=== PATIENT | male | born 1985 | race Caucasian/White ===

== ENCOUNTER 2024-04-24 16:33 | Inpatient (IN) | payer BC ==
[~2024-04-24] VITALS: Ht 180.3 cm; Wt 92.6 kg
[2024-04-24 16:51] VITALS: BP_SYST 118; PULSE 71; RESP 16; TEMP 96.6; O2SAT 97
[2024-04-24 19:28] LABS: BASOPHILS # (AUTO) 0.1 K/uL (0.0-0.2); BASOPHILS % (AUTO) 0.7 % (0.0-2.0); EOSINOPHILS # (AUTO) 0.4 K/uL (0.0-0.4); EOSINOPHILS % (AUTO) 4.4 % (0.0-4.0); HEMATOCRIT 43.1 % (36-54); HEMOGLOBIN 14.7 g/dL (14.0-18.0); LYMPHOCYTES # (AUTO) 2.6 K/uL (1.0-5.5); LYMPHOCYTES % (AUTO) 27.5 % (20.5-51.5); MEAN CORPUSCULAR HEMOGLOBIN 31 pg (27-31); MEAN CORPUSCULAR HGB CONC 34 % (32-36); MEAN CORPUSCULAR VOLUME 90 fL (79.0-98.0); MONOCYTES # (AUTO) 0.6 K/uL (0.0-1.0); MONOCYTES % (AUTO) 6.5 % (1.7-9.3); NEUTROPHILS # (AUTO) 5.7 K/uL (1.8-7.7); NEUTROPHILS % (AUTO) 60.9 % (40.0-70.0); PLATELET COUNT (AUTO) 268 K/uL (130-430); RED CELL DISTRIBUTION WIDTH 12.9 % (9.0-15.0); WHITE BLOOD COUNT (AUTO) 9.3 K/uL (4.8-10.8)
[2024-04-24 19:38] LABS: CALCIUM 9.3 mg/dL (8.4-11.0); CREATININE 1.42 mg/dL (0.55-1.30); POTASSIUM 4.6 mmol/L (3.5-5.1)
[2024-04-24 19:41] LABS: INR 1.1 (0.80-1.20); PROTHROMBIN TIME 11.1 SECS (9.5-12.5)
[2024-04-24] MEDS: ENOXAPARIN SODIUM 100 MG/ML SYRINGE SUBCUT ONE (20:56)
[2024-04-24 21:00] VITALS: TEMP 98.3; O2SAT 98
[2024-04-24] MEDS ORDERED: TEMAZEPAM 15 MG CAPSULE PO PRN (21:15)
[2024-04-24] MEDS ORDERED: ACETAMINOPHEN 325 MG TABLET PO PRN (21:15)
[2024-04-24] MEDS: 0.45% NS 500 ML IV ONE (23:05)
[2024-04-25] VITALS (9 sets, daily range): BP systolic 118–128; PULSE 64–74; RESP 16–18; TEMP 97.9–98.6; O2SAT 97–98
[2024-04-25 05:36] LABS: BASOPHILS # (AUTO) 0.1 K/uL (0.0-0.2); BASOPHILS % (AUTO) 0.7 % (0.0-2.0); EOSINOPHILS # (AUTO) 0.4 K/uL (0.0-0.4); EOSINOPHILS % (AUTO) 5.2 % (0.0-4.0); HEMATOCRIT 40.6 % (36-54); HEMOGLOBIN 14.1 g/dL (14.0-18.0); LYMPHOCYTES # (AUTO) 1.8 K/uL (1.0-5.5); LYMPHOCYTES % (AUTO) 23.7 % (20.5-51.5); MEAN CORPUSCULAR HEMOGLOBIN 31 pg (27-31); MEAN CORPUSCULAR HGB CONC 35 % (32-36); MEAN CORPUSCULAR VOLUME 91 fL (79.0-98.0); MONOCYTES # (AUTO) 0.5 K/uL (0.0-1.0); MONOCYTES % (AUTO) 6.6 % (1.7-9.3); NEUTROPHILS # (AUTO) 4.9 K/uL (1.8-7.7); NEUTROPHILS % (AUTO) 63.8 % (40.0-70.0); PLATELET COUNT (AUTO) 247 K/uL (130-430); RED BLOOD CELL COUNT(AUTO) 4.49 MIL/uL (4.2-6.2); RED CELL DISTRIBUTION WIDTH 12.8 % (9.0-15.0); WHITE BLOOD COUNT (AUTO) 7.6 K/uL (4.8-10.8)
[2024-04-25 05:40] LABS: ERYTHROCYTE SEDIMENTATION RATE 20 MM/HR (0-15)
[2024-04-25 06:11] LABS: ALBUMIN 2.7 g/dL (3.4-4.8); CALCIUM 8.6 mg/dL (8.4-11.0); CREATININE 1.36 mg/dL (0.55-1.30); FREE T4 (FREE THYROXINE) 1.4 ng/dL (0.6-1.6); POTASSIUM 3.7 mmol/L (3.5-5.1); THYROID STIMULATING HORMONE 3.22 uIu/mL (0.34-4.82); TOTAL BILIRUBIN 0.5 mg/dL (0.0-1.0); TOTAL PROTEIN, SERUM 7.1 g/dL (6.4-8.3)
[2024-04-25] MEDS: APIXABAN 2.5 MG TABLET PO SCH (08:31)
[2024-04-25] MEDS ORDERED: DIATR MEGLU/DIATRIZ SOD 30 ML SOLUTION PO ONE (10:55)
[2024-04-26] VITALS: BP_SYST 121; PULSE 62; RESP 16; TEMP 98.4; O2SAT 98
[2024-04-26 06:37] LABS: BASOPHILS # (AUTO) 0.1 K/uL (0.0-0.2); EOSINOPHILS # (AUTO) 0.4 K/uL (0.0-0.4); EOSINOPHILS % (AUTO) 4.8 % (0.0-4.0); HEMATOCRIT 40.5 % (36-54); HEMOGLOBIN 13.8 g/dL (14.0-18.0); LYMPHOCYTES # (AUTO) 1.7 K/uL (1.0-5.5); LYMPHOCYTES % (AUTO) 21.9 % (20.5-51.5); MEAN CORPUSCULAR HEMOGLOBIN 31 pg (27-31); MEAN CORPUSCULAR HGB CONC 34 % (32-36); MEAN CORPUSCULAR VOLUME 90 fL (79.0-98.0); MONOCYTES # (AUTO) 0.5 K/uL (0.0-1.0); NEUTROPHILS % (AUTO) 66.3 % (40.0-70.0); PLATELET COUNT (AUTO) 255 K/uL (130-430); RED BLOOD CELL COUNT(AUTO) 4.52 MIL/uL (4.2-6.2); RED CELL DISTRIBUTION WIDTH 12.6 % (9.0-15.0); WHITE BLOOD COUNT (AUTO) 7.6 K/uL (4.8-10.8)
[2024-04-26 07:13] LABS: CALCIUM 8.5 mg/dL (8.4-11.0); CREATININE 1.36 mg/dL (0.55-1.30); POTASSIUM 4.1 mmol/L (3.5-5.1)
[2024-04-26 07:45] VITALS: BP_SYST 118; PULSE 52; RESP 14; TEMP 98.2; O2SAT 98
[2024-04-26 08:39] VITALS: O2SAT 0
[2024-04-26 09:06] LABS: AFP, TUMOR MARKER <1.8 ng/mL (0.0-6.9); CARBOHYDRATE AG 19-9 4 U/mL (0-35); CEA 0.9 ng/mL (0.0-4.7)
[2024-04-26 10:06] LABS: % FREE PSA 46.7 % (.); FREE PSA 0.14 ng/mL; PROSTATE SPECIFIC AG TOTAL 0.3 ng/mL (0.0-4.0)
[2024-04-26 12:56] VITALS: BP_SYST 142; PULSE 82; RESP 18; TEMP 99.2; O2SAT 96
[2024-04-26] MEDS ORDERED: APIX5TAB PO (13:01)
[2024-04-26 14:19] VITALS: BP_SYST 142; PULSE 82; RESP 18; TEMP 99.2; O2SAT 96
== END 2024-04-26 14:45 | disposition home or self-care (01) | DRG 543 ==
LOC: SED 16:33 → SMU 19:28
PROVIDERS: ADMIT Internal Medicine; ATTEND Internal Medicine
DX: M84.462A Pathological fracture, left tibia, initial encounter for fracture (principal); E44.1 Mild protein-calorie malnutrition; I82.492 Acute embolism and thrombosis of other specified deep vein of left lower extremity; I70.8 Atherosclerosis of other arteries; K40.90 Unilateral inguinal hernia, without obstruction or gangrene, not specified as recurrent; Z79.899 Other long term (current) drug therapy; Z68.28 Body mass index [BMI] 28.0-28.9, adult
CPT/HCPCS: 36415; 71045; 71250-TC; 73590; 73700-TC; 80048; 80053; 82105; 82378; 83735; 84100; 84153; 84439; 84443; 84484; 85025; 85610; 85651; 85730; 86301; 93005; 93971; J1650; Q9964; Q9967